=== PATIENT | female | born 1950 | race Caucasian/White ===

== ENCOUNTER 2016-08-04 19:55 | Emergency (ER) | payer MEDICARE, BC ==
--- NOTE | ~2016-08-04 | US85 ---
[facility] A Service of [facility] RADIOLOGY TEXT RESULTS PATIENT: ALEKSANDRA LAW LOCATION: SED : 46 UNIT #: [id number] AGE: [address]: Rik Dietz SEX: F ORDER DR: [id number] [address] [address] [id number] E MR#: [id number] Acc #: [id number] NAME: ALEKSANDRA LAW : 1950 SEX: F STUDY DATE/TIME: 08/04/2016 21:07 UNIT: SED ROOM: STUDY DESCRIPTION: [facility] or [facility] St[facility] Attending Physician: Rik Dietz P.A.-C. Ordering Physician: Rik Dietz P.A.-C. Primary Care Physician: Bright Schwarz M.D. MEDICAL IMAGING REPORT This report is preliminary unless electronic signature is present. EXAM Left lower extremity venous Doppler. HISTORY Knot in left lateral distal thigh with bruising x12 hours. TECHNIQUE Venous ultrasound examination of the left lower extremity was performed using grayscale, spectral Doppler and color flow Doppler imaging. FINDINGS The examination is negative. There is no evidence of left lower extremity deep venous thrombus from the groin to the lower calf. Visualized greater saphenous vein is also patent. IMPRESSION Negative examination. No evidence of left lower extremity deep venous thrombosis. Dictated by... Ivelisse Rebolledo M.D. THIS IS AN ELECTRONICALLY VERIFIED REPORT Ivelisse Rebolledo M.D. at 08/05/2016 3:34 PM Ainsley TD: 08/05/2016 08:29 JOB #: [id number] MEDICAL IMAGING REPORT Page 1 of 1
[~2016-08-04 19:55] MED LIST: ALTACE PO; ALTACE10 M2 PO; AMBIEN10 MG PO; AMLODIPINE BESY10 MG PO; APRESOLINE PO; BUTALB-APAP-CA1 EACH PO; CHEMO; DECADRON PO; NAPROXEN SODIU550 M1 PO; PERCOCET 10/3251 TAB PO; PHENERGAN25 M1 PO; PROTONIX40 M1 PO; PROZAC PO; PROZAC40 MG PO; SYNTHROID PO; VALTREX PO; VICODIN 5-3001 EACH PO; ZOFRAN8 MG PO
== END 2016-08-04 22:07 | disposition home or self-care (01) ==
LOC: SED 19:55
DX: S80.12XA Contusion of left lower leg, initial encounter (principal); X58.XXXA Exposure to other specified factors, initial encounter; Y92.9 Unspecified place or not applicable
CPT/HCPCS: 93971; 99284

== ENCOUNTER → 2016-10-15 | Outpatient (CLI) | payer MEDICARE, BC ==
--- NOTE | ~2016-10-15 | MR122 ---
[facility] A Service of [facility] RADIOLOGY TEXT RESULTS PATIENT: ALEKSANDRA LAW [facility] UNIT #: [id number] AGE: [address]: Dash Huitron II, MD SEX: F ORDER DR: [id number] [facility] [address] [place], [place] [address] [id number] O MR#: [id number] Acc #: [id number] NAME: ALEKSANDRA LAW. : 1950 SEX: F STUDY DATE/TIME: 10/15/2016 13:11 UNIT: [facility] ROOM: STUDY DESCRIPTION: MR MRA Head Wo Contrast Attending Physician: Dash Huitron II., M.D. Referring Physician: Dash Huitron II., M.D. Ordering Physician: Dash Huitron II., M.D. Primary Care Physician: Bright Schwarz M.D. MRI CENTER REPORT This report is preliminary unless electronic signature is present. EXAM Intracranial MR angiogram HISTORY Anisocoria. Previous history of breast cancer. 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 TECHNIQUE MR angiographic imaging was performed from the skull base to the [place] [facility] [place]. FINDINGS No major branch vessel occlusions are seen in the intracranial circulation. There is moderate irregularity of the basilar artery with a focal stenosis of the proximal basilar artery of approximately 50-60%. Small vessel atherosclerotic changes are seen in both posterior cerebral arteries and in both middle cerebral arteries. 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 Small vessel atherosclerotic disease intracranially in multiple circulations. No evidence of aneurysm. Dictated by... Chetan Castro M.D. THIS IS AN ELECTRONICALLY VERIFIED REPORT Chetan Castro M.D. at 10/21/2016 7:10 AM SHAWN/benny TD: 10/15/2016 22:32 JOB #: [id number] [facility] A Service of [facility] RADIOLOGY TEXT RESULTS PATIENT: ALEKSANDRA LAW LOCATION: [facility] : 46 UNIT #: [id number] AGE: [address]: Dash Huitron II, MD SEX: F ORDER DR: MRI CENTER REPORT Page 1 of 1 COPY
--- NOTE | ~2016-10-15 | MR31 ---
[facility] A Service of [facility] RADIOLOGY TEXT RESULTS PATIENT: ALEKSANDRA LAW [facility] UNIT #: [id number] AGE: [address]: Dash Huitron II, MD SEX: F ORDER DR: [id number] [place] [id number] [facility]. [place], [place] [address] [id number] O MR#: [id number] Acc #: [id number] NAME: ALEKSANDRA LAW. : 1950 SEX: F STUDY DATE/TIME: 10/15/2016 13:37 UNIT: [facility] ROOM: STUDY DESCRIPTION: MR Cervical WWo Contrast Attending Physician: Dash Huitron II., M.D. Referring Physician: Dsah Huitron II., M.D. Ordering Physician: Dash Huitron II., M.D. Primary Care Physician: Bright Schwarz M.D. MRI CENTER REPORT This report is preliminary unless electronic signature is present. EXAM Cervical MRI with and without contrast COMPARISON 07/26/2012. HISTORY Breast cancer. Anisocoria. History of chemotherapy and radiation therapy for tumor behind the right eye. TECHNIQUE Multiplanar imaging cervical spine was performed with without contrast. 18 mL of MultiHance was used. FINDINGS There are degenerative changes at all cervical levels, mild at C2-C3 and C3-C4 and moderately severe at C4-C5, C5-C6 and C6-C7. Posterior disc and osteophyte formation is seen at all cervical levels. Central stenosis is most prominent at C4-C5. At C3-C4, there is central disc protrusion with mild canal narrowing and there is asymmetric, relative left foraminal narrowing, predominately from asymmetric left-sided facet hypertrophy. At C4-C5, moderate foraminal narrowing is noted bilaterally with moderate central stenosis. At C5-C6, there is posterior disc and osteophyte that extends more to the right uncovertebral joint on the left. Foraminal stenosis is moderate bilaterally. At C6-C7, there is a small posterior disc osteophyte complex with mild STS. [facility] A Service [facility] RADIOLOGY TEXT RESULTS PATIENT: ALEKSANDRA LAW [facility] UNIT #: [id number] AGE: [address]: Dash Huitron II, MD SEX: F ORDER DR: canal narrowing. The C7-T1 level is unremarkable. Postcontrast imaging shows no abnormal enhancement of the cord or vertebrae. No paraspinous masses are seen. The cervical cord is normal in size and signal. IMPRESSION Multilevel cervical degenerative disc and facet disease as described above. Central spinal stenosis is most prominent C4-C5. Foraminal stenosis is most prominent at C3-C4 on the left and C4-C5 bilaterally. No discrete disc herniation is seen. No abnormal enhancing lesions are seen either within or adjacent to the cervical cord on postcontrast imaging. Dictated by... Chetan Castro M.D. THIS IS AN ELECTRONICALLY VERIFIED REPORT Chetan Castro M.D. at 10/21/2016 7:10 AM SHAWN/benny TD: 10/15/2016 22:38 JOB #: [id number] MRI CENTER REPORT Page 1 of 1 COPY
--- NOTE | ~2016-10-15 | MR17 ---
[facility] A Service of [facility] RADIOLOGY TEXT RESULTS PATIENT: ALEKSANDRA LAW LOCATION: [facility] : 46 UNIT #: [id number] AGE: [address]: Dash Huitron II, MD SEX: F ORDER DR: [id number] [facility] [address] [place], [place] [address] [id number] O MR#: [id number] Acc #: [id number] NAME: ALEKSANDRA LAW. : 1950 SEX: F STUDY DATE/TIME: 10/15/2016 12:54 UNIT: [facility] ROOM: STUDY DESCRIPTION: MR Brain WWo Contrast Attending Physician: Dash Huitron II., M.D. Referring Physician: Dash Huitron II., M.D. Ordering Physician: Dash Huitron II., M.D. Primary Care Physician: Bright Schwarz M.D. MRI CENTER REPORT This report is preliminary unless electronic signature is present. EXAM Brain MRI with and without contrast. HISTORY Anisocoria. Tumor behind the right eye. TECHNIQUE Multiplanar imaging of the brain was performed with and without contrast. 18 mL MultiHance was used. COMPARISON 11/23/2015 FINDINGS On diffusion-weighted imaging there is no evidence of recent infarct. The routine brain images show moderate chronic ischemic changes in the periventricular deep white matter bilaterally as well as in the alyssa. There is no evidence of mass lesion, hemorrhage or edema. After contrast administration no abnormal enhancement is seen. The optic nerves are symmetric as are the cavernous sinuses. No tumors are seen behind the right eye. IMPRESSION Moderate chronic ischemic changes are seen in the alyssa and periventricular white mattered. No suspicious mass lesions are seen. No acute findings. Dictated by... Chetan Castro M.D. THIS IS AN ELECTRONICALLY VERIFIED REPORT Chetan Castro M.D. at 10/21/2016 7:10 AM [facility] A Service [facility] RADIOLOGY TEXT RESULTS PATIENT: ALEKSANDRA LAW LOCATION: [facility] : 46 UNIT #: [id number] AGE: [address]: Dash Huitron II, MD SEX: F ORDER DR: SHAWN/loki TD: 10/15/2016 22:34 JOB #: [id number] MRI CENTER REPORT Page 1 of 1 COPY
--- NOTE | ~2016-10-15 | MR134 ---
[facility] A Service of [facility] RADIOLOGY TEXT RESULTS PATIENT: ALEKSANDRA LAW LOCATION: [facility] : 46 UNIT #: [id number] AGE: [address]: Dash Huitron II, MD SEX: F ORDER DR: [id number] [facility] [address] [place], [place] [address] [id number] O MR#: [id number] Acc #: [id number] NAME: ALEKSANDRA LAW. : 1950 SEX: F STUDY DATE/TIME: 10/15/2016 13:19 UNIT: [facility] ROOM: STUDY DESCRIPTION: MR MRA Neck Wo Contrast Attending Physician: Dash Huitron II., M.D. Referring Physician: Dash Huitron II., M.D. Ordering Physician: Dash Huitron II., M.D. Primary Care Physician: Bright Schwarz M.D. MRI CENTER REPORT This report is preliminary unless electronic signature is present. EXAM Cervical carotid MR angiogram HISTORY Anisocoria. 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 COMPARISON 01/22/2016. TECHNIQUE MR angiographic imaging was performed across the carotid bifurcations with 2-D [id number] and 3-D MRA techniques. FINDINGS Both bifurcations are widely patent with no flow disturbance. No stenosis by NASCET criteria. The left vertebral artery is widely patent. The right vertebral artery is widely patent but smaller in caliber. It terminates AICA-PICA complex. IMPRESSION Negative examination. No evidence of carotid bifurcation stenosis. Dictated by... Chetan Castro M.D. THIS IS AN ELECTRONICALLY VERIFIED REPORT Chetan Castro M.D. at 10/21/2016 7:10 AM RLF/benny TD: 10/15/2016 22:33 [facility] Service of [facility] RADIOLOGY TEXT RESULTS PATIENT: ALEKSANDRA LAW LOCATION: [facility] : 46 UNIT #: [id number] AGE: [address]: Dash Huitron II, MD SEX: F ORDER DR: FOX #: [id number] MRI CENTER REPORT Page 1 of 1 COPY
[2016-10-15 12:56] LABS: POC - CREATININE 0.89 mg/dL (0.44-1.03); POC - GFR >60.0 mL/min (>60)
== END | disposition home or self-care (01) ==
LOC: CMRI 12:10
PROVIDERS: Psychiatry & Neurology Neurology
DX: H57.02 Anisocoria (principal); I65.1 Occlusion and stenosis of basilar artery; I67.2 Cerebral atherosclerosis; M48.02 Spinal stenosis, cervical region; M50.31 Other cervical disc degeneration, high cervical region
CPT/HCPCS: 70544; 70547; 70553; 72156; 82565; A9577

== ENCOUNTER → 2016-10-26 | Outpatient (CLI) | payer MEDICARE, BC ==
[2016-10-26 09:55] LABS: POC - GFR >60.0 mL/min (>60)
== END | disposition home or self-care (01) ==
LOC: SCT 07:42
PROVIDERS: Psychiatry & Neurology Neurology
DX: G43.909 Migraine, unspecified, not intractable, without status migrainosus (principal); R93.0 Abnormal findings on diagnostic imaging of skull and head, not elsewhere classified; Z53.9 Procedure and treatment not carried out, unspecified reason
CPT/HCPCS: 82565

== ENCOUNTER → 2017-01-12 | Outpatient (CLI) | payer MEDICARE, BC ==
--- NOTE | ~2017-01-12 | BD1 ---
[facility] A Service of [facility] RADIOLOGY TEXT RESULTS PATIENT: ALEKSANDRA LAW LOCATION: [facility] : 48 UNIT #: [id number] AGE: [address]: WOODROW SCHWARZ MD (INT MED) SEX: F ORDER DR: [id number] [facility] [address] [place], [place] [address] [id number] O MR#: [id number] Acc #: [id number] NAME: ALEKSANDRA LAW. : 1950 SEX: F STUDY DATE/TIME: 01/12/2017 12:11 UNIT: [facility] ROOM: STUDY DESCRIPTION: BD Dexa Bone Dens 1+ Site Attending Physician: Woodrow Schwarz M.D. Referring Physician: Woodrow Schwarz M.D. Primary Care Physician: Woodrow Schwarz M.D. MEDICAL IMAGING REPORT This report is preliminary unless electronic signature is present EXAM DXA scan 01/12/2017 HISTORY Status post menopause with no hormone replacement therapy. Osteopenia. Hysterectomy at age 38 with removal of both ovaries. Breast carcinoma, radiation therapy and chemotherapy. Family history of breast carcinoma in sister. Hyperthyroidism status post thyroidectomy. Hypertension with blood pressure medication. Steroid use for 15 years. Fractured wrist in last 10 years. FINDINGS Bone mineral density in the lumbar spine from L1-L4 is 0.849 g/cm2 which is 1.8 standard deviations below the mean when compared to the young adult reference population which is characteristic of osteopenia. This is 0.2 standard deviations above the mean when compared to the age-matched population. Bone mineral density in the left femoral neck was 0.609 g/cm2 which is 2.2 standard deviations below the mean when compared to the young adult reference population which is characteristic of osteopenia. This is 0.5 standard deviations below the mean when compared to the age-matched population. IMPRESSION Bone mineral density in the lumbar spine and left hip characteristic of osteopenia. Dictated by... Theron Bush M.D. THIS IS AN ELECTRONICALLY VERIFIED REPORT Theron Bush M.D. at 01/13/2017 10:32 AM KRT/pcl STS. [facility] A Service of [facility] RADIOLOGY TEXT RESULTS PATIENT: ALEKSANDRA LAW [id number] [birth year] UNIT #: [id number] AGE: [address]: WOODROW SCHWARZ MD (INT MED) SEX: F ORDER DR: TD: 01/12/2017 22:31 JOB #: [id number] MEDICAL IMAGING REPORT Page 1 of 1 COPY
== END | disposition home or self-care (01) ==
LOC: CWCC 11:53
DX: M81.0 Age-related osteoporosis without current pathological fracture (principal); Z78.0 Asymptomatic menopausal state
CPT/HCPCS: 77080